=== PATIENT | male | born 1990 ===

== ENCOUNTER 2017-04-28 14:26 | Emergency (ER) | payer MEDICAID ==
[2017-04-28 14:40] VITALS: BP 133/57; PULSE 92; RESP 14; TEMP 98; O2SAT 100
--- NOTE | 2017-04-28 15:18 | ED PDOC ---
Upper Extremity Pain/Injury Time Seen by Provider: 04/28/17 15:01 Chief Complaint (Nursing): Upper Extremity Problem/Injury Chief Complaint (Provider): hand pain History Per: Patient Additional Complaint(s): 23-year-old right-hand dominant male presents with pain to right hand 1 month status post punching a mirror. Patient never sought medical attention at that time. Patient has 2 healed lacerations to dorsum of right hand and he is concerned about possible foreign body under the skin surface. Patient rates pain as a 6 out of 10, denies any numbness or tingling to affected area. Patient never sought medical attention at time of initial injury 1 month ago. Past Medical History Reviewed: Historical Data, Nursing Documentation, Vital Signs Vital Signs: Last Vital Signs Temp 98.0 F 04/28/17 14:38 Pulse 92 H 04/28/17 14:38 Resp 14 04/28/17 14:38 BP 133/57 L 04/28/17 14:38 Pulse Ox 100 04/28/17 14:38 - Medical History PMH: No Chronic Diseases - Surgical History Surgical History: No Surg Hx - Family History Family History: States: No Known Family Hx - Living Arrangements Living Arrangements: With Family - Social History Current smoker - smoking cessation education provided: Yes Alcohol: Social Drugs: Denies - Immunization History Hx Tetanus Toxoid Vaccination: Yes - Home Medications Home Medications: Ambulatory Orders Medication Instructions Recorded No Known Home Med 02/09/16 - Allergies Allergies/Adverse Reactions: Allergies Allergy/AdvReac Type Severity Reaction Status Date / Time No Known Allergies Allergy Verified 11/01/14 23:53 Review of Systems ROS Statement: Except As Marked, All Systems Reviewed And Found Negative Musculoskeletal: Positive for: Other (right hand pain) Physical Exam - Reviewed Nursing Documentation Reviewed: Yes Vital Signs Reviewed: Yes - Physical Exam Appears: Positive for: Well, Non-toxic, No Acute Distress Skin: Negative for: Rash Eye Exam: Positive for: Normal appearance Extremity: Positive for: Other (2 small well-healed lacerations noted to dorsal aspect of right hand overlying the third and fourth distal metacarpals, tenderness noted overlying lacerations, full range of motion of all digits, normal distal sensation, no soft tissue swelling or evidence of cellulitis) - ECG O2 Sat by Pulse Oximetry: 100 Pulse Ox Interpretation: Normal - Other Rad Right hand x-ray X-Ray: Viewed By Me, Read By Radiologist X-Ray Interpretation: see below Medical Decision Making Medical Decision Makin26 year old male with right hand pain Plan: X-ray right hand X-ray: IMPRESSION: Soft tissue swelling at the level of the dorsum of the hand near the level of the distal metatarsals seen only on lateral view with tiny approximately 2 mm density of unclear significance ; correlate clinically. Copy of x-ray report and films given to patient. Hand referral provided for follow up. Disposition - Clinical Impression Clinical Impression: Foreign body in hand - Patient ED Disposition Is Patient to be Admitted: No Counseled Patient/Family Regarding: Studies Performed, Diagnosis, Need For Followup - Disposition Referrals: Loki Armendariz MD [Medical Doctor] - Disposition: Routine/Home Disposition Time: 16:51 Condition: STABLE Additional Instructions: Continue with Tylenol or Motrin for pain as needed. Call hand specialist to arrange for follow-up visit. Instructions: Soft Tissue Foreign Body (ED) Forms: [employer] ([place])
--- NOTE | 2017-04-28 16:07 | RAD ---
PROCEDURE: Right Hand Radiographs. HISTORY: ? FB, trauma 1 month ago COMPARISON: Right hand radiograph performed 02/09/16 FINDINGS: BONES: No acute displaced fracture. JOINTS: No dislocation. SOFT TISSUES: Soft tissue swelling at the level of the dorsum of the hand near the level of the distal metatarsals seen only on lateral view with tiny approximately 2 mm density of unclear significance ; correlate clinically. OTHER FINDINGS: None. IMPRESSION: Soft tissue swelling at the level of the dorsum of the hand near the level of the distal metatarsals seen only on lateral view with tiny approximately 2 mm density of unclear significance ; correlate clinically.
== END 2017-04-28 17:05 | disposition home or self-care (01) ==
LOC: EDSEX 14:26 → H.ER 14:26
DX: S60.551A Superficial foreign body of right hand, initial encounter (principal); W25.XXXA Contact with sharp glass, initial encounter; Y92.89 Other specified places as the place of occurrence of the external cause